=== PATIENT | male | born 1995 | race Caucasian/White ===

== ENCOUNTER 2017-06-04 12:40 | Emergency (ER) | payer MEDICAID ==
[~2017-06-04] VITALS: Ht 152.4 cm; Wt 82.7 kg
[2017-06-04 12:43] VITALS: Ht 152.4 cm; Wt 82.7 kg
[2017-06-04] MEDS ORDERED: SOD CHLORIDE 0.9% 500 ML IV STA (13:28)
[2017-06-04] MEDS ORDERED: KETOROLAC 30 MG INJ IV STA (13:28)
--- NOTE | 2017-06-04 13:33 | ERD ---
ER Documentation Chief Complaint Chief Complaint Complains of abdominal pain x 3 days HPI 22-year-old male, with history of exploratory laparotomy due to ruptured appendix 4 years ago, presents to the emergency department complaining of progressive worsening of left upper quadrant abdominal pain. The pain is sharp , constant, 8/10, radiated to the left flank. The symptoms are associated with nausea and chills. The patient took ibuprofen without improvement of the symptoms. Denies diarrhea, constipation, blood in the stools. History provided by patient ROS A 12-point review of systems was performed and negative other than presented in the history of present illness. SYSTEMIC symptoms: no fever, chills, no night sweats, no weight loss EYE symptoms: No blurred vision, no eye discharge OTOLARYNGEAL symptoms: No hearing loss. No ear pain, no sore throat CARDIOVASCULAR symptoms: No chest pain or discomfort, no palpitations. PULMONARY symptoms: No dyspnea, no cough, no wheezing. GASTROINTESTINAL symptoms: No abdominal pain, no nausea, no vomiting, no diarrhea MUSCULOSKELETAL symptoms: No arthralgias, no muscle aches. NEUROLOGY symptoms: No confusion, no syncope, no numbness or tingling. SKIN: No rashes Medications Home Meds Active Scripts Ranitidine Hcl* (Zantac*) 150 Mg Tablet, 150 MG PO BID Y for EPIGASTRIC PAIN, # 30 TAB Prov:HELENA LINDER MD 06/04/17 Acetaminophen* (Tylenol*) 325 Mg Tablet, 1 TAB PO Q6 Y for PAIN AND OR ELEVATED TEMP, #20 TAB Prov:HELENA LINDER MD 06/04/17 Allergies Allergies: Coded Allergies: No Known Allergy (Unverified , 07/27/14) PMhx/Soc History of Surgery: Yes (APPENDECTOMY) Anesthesia Reaction: No Hx Neurological Disorder: No Hx Respiratory Disorders: No Hx Cardiac Disorders: No Hx Psychiatric Problems: No Hx Miscellaneous Medical Probl: No Hx Alcohol Use: No Hx Substance Use: No Hx Tobacco Use: No Smoking Status: Never smoker Physical Exam Vitals Vital Signs Date Time Temp Pulse Resp B/P Pulse Ox O2 Delivery O2 Flow Rate FiO2 06/04/17 12:43 98.0 61 20 113/58 97 Physical Exam Patient is in mild distress due to pain, vital signs stable. Alert and fully oriented. EYES: PERRLA, EOMI, Sclera and conjunctiva appear normal. EARS: Canals clear, tympanic membranes WNL THROAT: Normal oropharynx. NECK: Supple, No lymphadenopathy. Full ROM without pain or tenderness. HEART: RRR, no rubs, murmurs, clicks or gallops. LUNGS: Clear to auscultation. ABDOMEN: Soft, tenderness to deep palpation in left upper quadrant. Questionable rebound. EXTREMITIES: No edema bilaterally. BACK: Full ROM, no deformity, normal back exam NEURO: Cranial nerves grossly intact, no motor or sensory deficit Result Diagram: 06/04/17 1337 06/04/17 1337 Results 24 hrs Laboratory Tests Test 06/04/17 13:37 06/04/17 13:39 White Blood Count 8.710^3/ul Red Blood Count 5.1810^6/ul Hemoglobin 15.3g/dl Hematocrit 45.0% Mean Corpuscular Volume 86.9fl Mean Corpuscular Hemoglobin 29.5pg Mean Corpuscular Hemoglobin Concent 34.0g/dl Red Cell Distribution Width 12.2% Platelet Count 83423^3/UL Mean Platelet Volume 10.4fl Neutrophils % 50.4% Lymphocytes % 36.2% Monocytes % 10.9% Eosinophils % 0.9% Basophils % 0.6% Nucleated Red Blood Cells % 0.0/100WBC Neutrophils # 4.410^3/ul Lymphocytes # 3.110^3/ul Monocytes # 1.010^3/ul Eosinophils # 0.110^3/ul Basophils # 0.110^3/ul Nucleated Red Blood Cells # 0.010^3/ul Sodium Level 144mmol/L Potassium Level 3.8mmol/L Chloride Level 103mmol/L Carbon Dioxide Level 27mmol/L Anion Gap 18 Blood Urea Nitrogen 17mg/dl Creatinine 0.92mg/dl Glucose Level 92mg/dl Calcium Level 9.6mg/dl Total Bilirubin 0.7mg/dl Direct Bilirubin 0.00mg/dl Indirect Bilirubin 0.7mg/dl Aspartate Amino Transf (AST/SGOT) 65IU/L Alanine Aminotransferase (ALT/SGPT) 129IU/L Alkaline Phosphatase 119IU/L Total Protein 8.5g/dl Albumin 4.7g/dl Globulin 3.80g/dl Albumin/Globulin Ratio 1.23 Lipase 85U/L Urine Color YELLOW Urine Clarity CLEAR Urine pH 5.0 Urine Specific [place] 1.030 Urine Ketones NEGATIVEmg/dL Urine Nitrite NEGATIVEmg/dL Urine Bilirubin NEGATIVEmg/dL Urine Urobilinogen NEGATIVEmg/dL Urine Leukocyte Esterase NEGATIVELeu/ul Urine Hemoglobin NEGATIVEmg/dL Urine Glucose NEGATIVEmg/dL Urine Total Protein NEGATIVEmg/dl Current Medications Medications (Trade) Dose Ordered Sig/Susanna Route PRN Reason Start Time Stop Time Status Last Admin Dose Admin Sodium Chloride (NS) 500 ml @ 500 mls/hr Q1H STAT IV 06/04/17 13:28 06/04/17 14:27 DC 06/04/17 13:35 Ketorolac Tromethamine (Toradol) 30 mg ONCE STAT IV 06/04/17 13:28 06/04/17 13:30 DC 06/04/17 13:35 [place] [id number] Radiology Main Line: [phone] DIAGNOSTIC IMAGING REPORT Patient: DEVON KHALIL : 1995 Age: 22 Sex: M MR #: [id number] DOS: 06/04/17 1328 Ordering MD: HELENA LINDER MD Location: [facility] Room/Bed: PROCEDURE: CT abdomen and pelvis without contrast. CLINICAL INDICATION: Abdominal Pain TECHNIQUE: CT scan of the abdomen and pelvis without contrast was performed and is reconstructed at 2.5 mm contiguous axial intervals from the dome of the diaphragm to the inferior pubic rami.. The patient was scanned without intravenous contrast. Sagittal and coronal reformatted images were obtained from the axial source images. The calculated radiation dose measures 749 mGy centimeters. The CTDI measures 12 mGy. Individualized dose optimization technique was used for the performance of this exam. This included 1. Automated exposure control. 2. Adjustment of the mA and / or kV according to the patient's size. 3. Use of iterative reconstructed technique. COMPARISON: None FINDINGS: The lung bases are clear of any infiltrate or nodule. No effusion is seen. Liver is enlarged measuring 19 cm. There is fatty infiltration with focal sparing adjacent to the gallbladder. No discrete mass or ductal dilatation is present. No gallstones are visualized. No splenic, adrenal or pancreatic abnormalities present. Kidneys are of normal size and contour. No hydronephrosis, calculus or solid masses seen. A 1 cm cyst is seen in the upper pole of the left kidney. Ureters are of normal course and caliber with no stone. No bladder mass or stone is present. There is no aneurysm. No adenopathy is present. No bowel mass or obstruction is present. The appendix is not confidently visualized, however, no inflamed appendix is noted.. No phlegmon, ascites or pneumoperitoneum is visualized. The osseous structures are intact. IMPRESSION: No evidence of urolithiasis, obstructive uropathy, diverticulitis or appendicitis. Enlarged fatty liver. Left renal cyst. .Bharath Olsen MD, MD Date Time Electronically viewed and signed by .Bharath Olsen MD, MD on 06/04/2017 14: 33 .A/ CC: HELENA LINDER MD Procedures/MDM 22-year-old male with history of ex lap 4 years ago presents to the emergency department complaining of worsening of left upper quadrant abdominal pain Vital signs stable, Physical exam revealed a tender upper abdomen with questionable rebound.. Differential diagnosis include but not limited to: UTI, colitis, gastroenteritis , kidney stones, irritable bowel syndrome, inflammatory bowel syndrome, malabsorption syndrome, cholelithiasis, food intolerance, medication side effect , pancreatitis, diverticulitis, bowel obstruction. Pertinent Data: Labs: CBC: normal, CMP: normal kidney and liver function, normal electrolytes. Lipase: normal Radiology: CT abdomen:No evidence of urolithiasis, obstructive uropathy, diverticulitis or appendicitis. Physical examination and clinical presentation consistent most likely with gastritis. During the ED course the patient remained stable, no new complaints. The patient received treatment with IV fluids and pain medication presenting overall improvement of the symptoms. Results and clinical impression discussed with patient who agrees with management. The patient is stable to be treated outpatient and will be discharged home with a Rx for ranitidine and Tylenol, some side effects of prescribed medications (headache, rash, nausea, vomiting, diarrhea, drowsiness, habituation, bleeding, hypertension, interactions with other medications) were reviewed. The patient was instructed to follow up with the primary care provider in the next 48h. If symptoms persist, worsen or new symptoms develop, then patient should return to the ED immediately. Instructions explained and given directly by me to the patient in Greek with acknowledgment and demonstrated understanding. Disclaimer: Inadvertent spelling and grammatical errors are likely due to EHR/ dictation software use and do not reflect on the overall quality of patient care. Also, please note that the electronic time recorded on this note does not necessarily reflect the actual time of the patient encounter. Departure Diagnosis: Primary Impression: Abdominal pain Additional Impression: Gastritis Condition: Stable Patient Instructions: Abdominal Pain Additional Instructions: Muchas rufina por [facility] para vasquez servicio. Esperamos que en vasquez visita a la travis de emergencia vasquez problema medico haya sido solucionado y que se sienta mucho mejor. Para estar seguros que vasquez mejoria sigue en proceso, le pedimos el favor de hacer raji fauzia de seguimiento medico con vasquez doctor primario en los proximos 2-4 soria. Lleve con usted estos documentos y las medicinas recetadas. Si dania sintomas empeoran y no puede cristina a vasquez doctor, por favor regrese a travis de emergencia. En katherine que usted no tenga un mdico de atencin primaria: Llame al mdico o clnica comunitaria de referencia que aparece abajo sonali las horas de consultorio para hacer raji fauzia para que le vean. CLINICAS: [facility] [phone] [facility] [phone] [facility] [phone] [address] [facility] [phone] [facility] [phone] [facility]. [phone] [address],HELENA MD Jun 04, 2017 13:33
[2017-06-04 13:42] LABS: BASOPHIL # 0.1 10^3/ul (0.0-0.1); BASOPHILS % 0.6 % (0.0-2.0); EOSINOPHILS # 0.1 10^3/ul (0.0-0.5); EOSINOPHILS % 0.9 % (0.0-7.0); HEMOGLOBIN 15.3 g/dl (14.0-18.0); LYMPHOCYTES # 3.1 10^3/ul (0.8-2.9); LYMPHOCYTES % 36.2 % (15.0-51.0); MEAN CORPUSCULAR HEMOGLOBIN 29.5 pg (29.0-33.0); MEAN CORPUSCULAR VOLUME 86.9 fl (82.0-101.0); MEAN PLATELET VOLUME 10.4 fl (7.4-10.4); MONOCYTES % 10.9 % (0.0-11.0); NEUTROPHIL # 4.4 10^3/ul (1.6-7.5); NEUTROPHILS % 50.4 % (39.0-77.0); PLATELET COUNT 200 10^3/UL (140-415); RED BLOOD COUNT 5.18 10^6/ul (4.70-6.10); RED CELL DISTRIBUTION WIDTH 12.2 % (11.5-14.5); WHITE BLOOD COUNT 8.7 10^3/ul (4.8-10.8)
[2017-06-04 13:45] LABS: ADD UMIC NO; UR ASCORBIC ACID NEGATIVE (NEGATIVE); UR BILIRUBIN (Dip) NEGATIVE (NEGATIVE); UR BLOOD (Dip) NEGATIVE (NEGATIVE); UR CLARITY CLEAR (CLEAR); UR COLOR YELLOW (YELLOW); UR GLUCOSE (Dip) NEGATIVE (NEGATIVE); UR KETONES (Dip) NEGATIVE (NEGATIVE); UR LEUKOCYTE ESTERASE (Dip) NEGATIVE Leu/ul (NEGATIVE); UR NITRITE (Dip) NEGATIVE (NEGATIVE); UR TOTAL PROTEIN (Dip) NEGATIVE (NEGATIVE); UR UROBILINOGEN (Dip) NEGATIVE (NEGATIVE)
[2017-06-04 14:02] LABS: ALBUMIN 4.7 g/dl (3.3-4.9); ALBUMIN/GLOBULIN RATIO 1.23; BILIRUBIN,INDIRECT 0.7 mg/dl (0-1.1); BILIRUBIN,TOTAL 0.7 mg/dl (0.2-1.3); CALCIUM 9.6 mg/dl (8.4-10.2); CREATININE 0.92 mg/dl (0.61-1.24); POTASSIUM 3.8 mmol/L (3.5-5.1); TOTAL PROTEIN 8.5 g/dl (6.1-8.1)
--- NOTE | 2017-06-04 14:33 | RADRPT ---
PROCEDURE: CT abdomen and pelvis without contrast. CLINICAL INDICATION: Abdominal Pain TECHNIQUE: CT scan of the abdomen and pelvis without contrast was performed and is reconstructed a t 2.5 mm contiguous axial intervals from the dome of the diaphragm to the inferior pubic rami.. The patient was scanned without intravenous contrast. Sagittal and coronal reformatted images were obt ained from the axial source images. The calculated radiation dose measures 749 mGy centimeters. The CTDI measures 12 mGy. Individualized dose optimization technique was used for the performance of this exam. This included 1. Automated exposure control. 2. Adjustment of the mA and / or kV according to the patient's size. 3. Use of iterative reconstructed technique. COMPARISON: None FINDINGS: The lung bases are clear of any infiltrate or nodule. No effusion is seen. Liver is enlarged measuring 19 cm. There is fatty infiltration with focal sparing adjacent to the ga llbladder. No discrete mass or ductal dilatation is present. No gallstones are visualized. No spl enic, adrenal or pancreatic abnormalities present. Kidneys are of normal size and contour. No hydronephrosis, calculus or solid masses seen. A 1 cm c yst is seen in the upper pole of the left kidney. Ureters are of normal course and caliber with no s tone. No bladder mass or stone is present. There is no aneurysm. No adenopathy is present. No bowel mass or obstruction is present. The appendix is not confidently visualized, however, no inflamed appendix is noted.. No phlegmon, ascites or pneumoperitoneum is visualized. The osseous structures are intact. IMPRESSION: No evidence of urolithiasis, obstructive uropathy, diverticulitis or appendicitis. Enlarged fatty liver. Left renal cyst. .Bharath Olsen MD, MD Date Time Electronically viewed and signed by .Bharath Olsen MD, MD on 06/04/2017 14:33 .A/
[2017-06-04] MEDS ORDERED: ACET325T33 PO (14:48)
[2017-06-04] MEDS ORDERED: RANI150T9 PO (14:48)
== END 2017-06-04 15:07 | disposition home or self-care (01) ==
LOC: FTE 12:40
DX: K29.70 Gastritis, unspecified, without bleeding (principal)
CPT/HCPCS: 36415; 74176; 80053; 81003; 83690; 85025; 96374; J1885; J7040; Z7502

== ENCOUNTER 2019-01-13 07:44 | Emergency (ER) | payer SELFPAY ==
[~2019-01-13] VITALS: Ht 162.6 cm; Wt 84.2 kg
[~2019-01-13 07:44] MED LIST: ACET325T33 PO; BEN25 PO; CLOT30CR24 TOP; RANI150T35 PO
[2019-01-13 07:48] VITALS: BP 103/74; PULSE 54; RESP 20; Ht 162.6 cm; Wt 84.2 kg
--- NOTE | 2019-01-13 08:45 | ERD ---
ER Documentation Chief Complaint Chief Complaint c/o rash and itching on legs and thighs, was at [address] same problem HPI 23-year-old male with no reported past medical history who presents with complaint of rash over the past month. States he been having itchy rash to bilateral lower extremities upper thigh over this period of time. Was seen in [facility] for similar complaints prescribed triamcinolone which did not help with symptoms. He otherwise denies fevers, chills, toxic exposures, illicit drug use, use of new creams, at risk sexual behaviors. He otherwise is without complaint. Reports all vaccinations up-to-date and no medical allergies. ROS All systems reviewed and are negative except as per history of present illness. Medications Home Meds Active Scripts Clotrimazole* (Clotrimazole* AF) 1% - 30 Gm Cream.gm., 1 APPLIC TOP BID for 14 Days, TUB Prov:GM HUFFMAN PA-C 01/13/19 Diphenhydramine Hcl* (Benadryl*) 25 Mg Cap, 25 MG PO Q6 PRN for ITCHING/RASH, #30 TAB Prov:GM HUFFMAN PA-C 01/13/19 Ranitidine Hcl* (Zantac*) 150 Mg Tablet, 150 MG PO BID PRN for EPIGASTRIC PAIN, #30 TAB Prov:HELENA LINDER MD 06/04/17 Acetaminophen* (Tylenol*) 325 Mg Tablet, 1 TAB PO Q6 PRN for PAIN AND OR ELEVATED TEMP, #20 TAB Prov:HELENA LINDER MD 06/04/17 Allergies Allergies: Coded Allergies: No Known Allergy (Unverified , 07/27/14) PMhx/Soc Medical and Surgical Hx: pt denies Medical Hx History of Surgery: Yes (APPENDECTOMY) Anesthesia Reaction: No Hx Neurological Disorder: No Hx Respiratory Disorders: No Hx Cardiac Disorders: No Hx Psychiatric Problems: No Hx Miscellaneous Medical Probl: No Hx Alcohol Use: No Hx Substance Use: No Hx Tobacco Use: No Smoking Status: Never smoker FmHx Family History: No diabetes, No coronary disease, No other Physical Exam Vitals Vital Signs Date Temp Pulse Resp B/P (MAP) Pulse Ox O2 O2 Flow FiO2 Time Delivery Rate 01/13/19 97.5 54 20 103/74 98 07:48 (84) Physical Exam Const: No acute distress Head: Atraumatic Eyes: Normal Conjunctiva ENT: Normal External Ears, Nose and Mouth. Neck: Full range of motion. No meningismus. Resp: Clear to auscultation bilaterally Cardio: Regular rate and rhythm, no murmurs Abd: Soft, non tender, non distended. Normal bowel sounds Skin: Elina areas of small rashes to bilateral lower extremities, right upper thigh, bilateral feet without rash, no rashes to soles of feet Back: No midline or flank tenderness Ext: No cyanosis, or edema Neur: Awake and alert Psych: Normal Mood and Affect Procedures/MDM 23-year-old male who presents with complaint of lower extremity rash. Patient is afebrile with reassuring exam. I have low suspicion for acute infection warranting further emergent care work-up. Symptoms likely secondary to ongoing fungal infection. Will treat with clotrimazole, Benadryl for itching. Patient advised to follow-up with PMD. Strict return precautions explained in detail. DISPOSITION PLAN: We discussed follow up with the patient's primary care doctor within 24 to 48 hours. Patient counseled regarding my diagnostic impression and care plan. Prior to discharge all questions answered. Pt agrees with treatment plan and understands strict return precautions. Precautionary instructions provided including instructions to return to the ER if not improving or for any worsening or changing symptoms or concerns. Disclaimer: Inadvertent spelling and grammatical errors are likely due to EHR/d ictation software use and do not reflect on the overall quality of patient care. Also, please note that the electronic time recorded on this note does not necessarily reflect the actual time of the patient encounter. Departure Diagnosis: Primary Impression: Rash Condition: Stable Patient Instructions: Self-Care for Skin Rashes Referrals: COMMUNITY CLINICS YOU HAVE RECEIVED A MEDICAL SCREENING EXAM AND THE RESULTS INDICATE THAT YOU DO NOT HAVE A CONDITION THAT REQUIRES URGENT TREATMENT IN THE EMERGENCY DEPARTMENT. FURTHER EVALUATION AND TREATMENT OF YOUR CONDITION CAN WAIT UNTIL YOU ARE SEEN IN YOUR DOCTORS OFFICE WITHIN THE NEXT 1-2 DAYS. IT IS YOUR RESPONSIBILITY TO MAKE AN APPOINTMENT FOR FOLOW-UP CARE. IF YOU HAVE A PRIMARY DOCTOR --you should call your primary doctor and schedule an appointment IF YOU DO NOT HAVE A PRIMARY DOCTOR YOU CAN CALL OUR PHYSICIAN REFERRAL HOTLINE AT IF YOU CAN NOT AFFORD TO SEE A PHYSICIAN YOU CAN CHOSE FROM THE FOLLOWING [facility]ICS [facility] [address] [facility] [address] [facility] [facility] [address] [facility] [address] [facility] [phone] [facility]. [facility] [address] Additional Instructions: Call your primary care doctor TOMORROW for an appointment during the next 2-3 days.See the doctor sooner or return here if your condition worsens before your appointment time. GM HUFFMAN PA-C Jan 13, 2019 08:45
== END 2019-01-13 08:52 | disposition home or self-care (01) ==
LOC: FTE 07:44
DX: R21 Rash and other nonspecific skin eruption (principal)
CPT/HCPCS: 99282